=== PATIENT | female | born 1980 | race Caucasian/White ===

== ENCOUNTER 2019-03-11 16:18 | Emergency (ER) | payer OTHER ==
[2019-03-11 16:23] VITALS: BP 118/56
[2019-03-11] MEDS ORDERED: ACETAMINOPHEN 325 MG TABLET PO ONE (16:50)
--- NOTE | 2019-03-11 16:52 | ER Document Report ---
HPI - HPI Time Seen by Provider: 03/11/19 16:46 Pain Level: 4 Notes: Patient is a 38-year-old female no significant past medical history who presents complaining of right great toe pain status post injury yesterday. Patient states that she stubbed her toe off of the door and has had pain and swelling since then. She has not noticed any bleeding. She is able to ambulate, but is limping. Denies drug allergies. The pain does not radiate. Denies any headache, fever, neck pain, URI, sore throat, chest pain, palpitations, syncope, cough, shortness of breath, wheeze, dyspnea, abdominal pain, nausea/vomiting/diarrhea, urinary retention, dysuria, hematuria, loss of control of bowel or bladder, numbness/tingling, muscle paralysis/weakness, or rash. - ROS Systems Reviewed and Negative: Yes All other systems reviewed and negative - REPRODUCTIVE Reproductive: DENIES: : Past Medical History - Social History Smoking Status: Current Every Day Smoker Family History: Reviewed & Not Pertinent Neurological Medical History: Reports: Hx Migraine Past Surgical History: Reports: Hx Section, Hx Tubal Ligation - Immunizations Hx Diphtheria, Pertussis, Tetanus Vaccination: Yes Vertical Provider Document - CONSTITUTIONAL Agree With Documented VS: Yes Notes: PHYSICAL EXAMINATION: GENERAL: Well-appearing, well-nourished and in no acute distress. LUNGS: Breath sounds clear to auscultation bilaterally and equal. No wheezes rales or rhonchi. HEART: Regular rate and rhythm without murmurs, rubs, gallops. Musculoskeletal: Rt foot/ankle: + mild 1st toe swelling. No ecchymosis or deformity. LROM to passive/active flexion at 1st toe. Strength 5+/5. N/V intact distal. + tenderness to the great toe. No bony tenderness of the foot/ankle. Achilles intact. Lis Franc maneuver neg. Anterior drawer neg. Extremities: No cyanosis, clubbing, or edema b/l. Peripheral pulses 2+. Capillary refill less than 3 seconds. NEUROLOGICAL: Normal speech, limping gait. Normal sensory, motor exams PSYCH: Normal mood, normal affect. SKIN: Warm, Dry, normal turgor, no rashes or lesions noted. - INFECTION CONTROL TRAVEL OUTSIDE OF THE [place] IN LAST 30 DAYS: No Course - Re-evaluation Re-evalutation: 03/11/19 Patient is an afebrile, well-hydrated, 38-year-old female who presents to the ED with Rt 1st toe fracture distal phalanx. Vitals are acceptable without any significant tachycardia, tachypnea, or hypoxia. PE is otherwise unremarkable for any neurovascular compromise, obvious tendon/ligament rupture, open fracture, septic joint. See XR result. Postop shoe and crutches provided. Ty lenol given p.o. Patient is nontoxic-appearing. No other labs or imaging warranted at this time based on H&P. Conservative measures otherwise for symptoms. Recheck with your PCM in 3-5 days. Call orthopedics tomorrow to schedule an appointment for further evaluation and management. Return to the ED with any worsening/concerning symptoms otherwise as reviewed in discharge. Patient is in agreement. - Vital Signs Vital signs: Temp Pulse Resp BP Pulse Ox 98.1 F 99 15 118/56 L 97 03/11/19 16:22 03/11/19 16:22 03/11/19 16:22 03/11/19 16:22 03/11/19 16:22 Discharge - Discharge Clinical Impression: Fracture of great toe, right, closed Qualifiers: Encounter type: initial encounter Phalanx: distal Fracture alignment: nondisplaced Qualified Code(s): S92.424A - Nondisplaced fracture of distal phalanx of right great toe, initial encounter for closed fracture Condition: Stable Disposition: HOME, SELF-CARE Additional Instructions: Rest, Ice, Compression, Elevation Use crutches/splint as directed Tylenol/ibuprofen as needed F/u with your PCP in 3-5 days for a recheck Call orthopedics tomorrow to schedule an appointment for further evaluation and management Return to the ED with any worsening symptoms and/or development of fever, headache, chest pain, palpitations, syncope, shortness of breath, trouble breathing, abdominal pain, n/v/d, muscle weakness/paralysis, numbness/tingling, swelling, redness, or other worsening symptoms that are concerning to you. Prescriptions: Tramadol HCl [Ultram 50 mg Tablet] 50 mg PO Q4HP PRN #15 tab PRN Reason: Meloxicam [Mobic 7.5 Mg Tablet] 7.5 mg PO BID PRN #14 tablet PRN Reason: Forms: Smoking Cessation Education, Return to Work Referrals: [facility] [Provider Group] - Follow up as needed MIGUEL HUGGINS MD [ACTIVE PROVISIONAL STAFF] - Follow up in 3-5 days
--- NOTE | 2019-03-11 17:12 | RADIOLOGY REPORT (SQ) ---
EXAM DESCRIPTION: FOOT RIGHT COMPLETE COMPLETED DATE/TIME: 03/11/2019 5:04 pm REASON FOR STUDY: 1st toe pain s/p injury COMPARISON: None. NUMBER OF VIEWS: Three views. TECHNIQUE: AP, lateral and oblique radiographic images acquired of the right foot. LIMITATIONS: None. FINDINGS: MINERALIZATION: Normal. BONES: Nondisplaced comminuted fracture of the base of the distal phalanx of the great toe. Intra-ar ticular extension. JOINTS: No effusions. SOFT TISSUES: No soft tissue swelling. No foreign body. OTHER: No other significant finding. IMPRESSION: Nondisplaced comminuted intra-articular fracture distal phalanx great toe. TECHNICAL DOCUMENTATION: JOB ID: [id number] [employer]- All Rights Reserved Reading location - IP/workstation name: [email or web address]
== END 2019-03-11 17:55 | disposition home or self-care (01) ==
LOC: ER 16:18
DX: S92.424A Nondisplaced fracture of distal phalanx of right great toe, initial encounter for closed fracture (principal); W22.09XA Striking against other stationary object, initial encounter; F17.200 Nicotine dependence, unspecified, uncomplicated
CPT/HCPCS: 99283

== ENCOUNTER 2019-05-09 13:51 | Emergency (ER) | payer OTHER ==
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
[2019-05-09] MEDS ORDERED: OXYCODONE-ACETAMINOPHEN 5-325 MG TABLET PO ONE (14:27)
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
--- NOTE | 2019-05-09 15:40 | RADIOLOGY REPORT (SQ) ---
EXAM DESCRIPTION: HIP RIGHT AP/LATERAL COMPLETED DATE/TIME: 05/09/2019 3:07 pm REASON FOR STUDY: Rt hip pain s/p injury COMPARISON: None. NUMBER OF VIEWS: Two views. TECHNIQUE: AP pelvis and additional frog-leg view of the right hip. LIMITATIONS: None. FINDINGS: MINERALIZATION: Normal. RIGHT HIP: No fracture or dislocation. No worrisome bone lesions. LEFT HIP: No fracture or dislocation. No worrisome bone lesions. PUBIS AND ISCHIUM: No fracture. PELVIS: No fracture. SACRUM: No fracture or dislocation. No worrisome bone lesions. LOWER LUMBAR SPINE: No fracture or dislocation. No worrisome bone lesions. No significant disc disea se. SOFT TISSUES: No findings. OTHER: No other significant finding. IMPRESSION: NEGATIVE STUDY OF THE RIGHT HIP. NO RADIOGRAPHIC EVIDENCE OF ACUTE INJURY. TECHNICAL DOCUMENTATION: JOB ID: [id number] [employer]- All Rights Reserved Reading location - IP/workstation name: [email or web address]
[2019-05-09 16:00] VITALS: BP 103/59
== END 2019-05-09 16:00 | disposition home or self-care (01) ==
LOC: ER 13:51
DX: S73.101A Unspecified sprain of right hip, initial encounter (principal); S53.401A Unspecified sprain of right elbow, initial encounter; M79.651 Pain in right thigh; M25.551 Pain in right hip; M25.521 Pain in right elbow; V03.00XA Pedestrian on foot injured in collision with car, pick-up truck or van in nontraffic accident, initial encounter; Y92.481 Parking lot as the place of occurrence of the external cause; F17.200 Nicotine dependence, unspecified, uncomplicated
CPT/HCPCS: 99283